=== PATIENT | male | born 1965 | race Caucasian/White ===

== ENCOUNTER → 2020-12-27 14:32 | Outpatient (CLI) | payer BC, SELFPAY ==
--- NOTE | ~2020-12-27 | XR_ITS ---
EXAMINATION: XR chest 2V 12/27/2020 14:48 INDICATION: Fatigue. Exercise intolerance. PROCEDURE: 2 view chest COMPARISON: No prior studies for comparison. FINDINGS: The lungs are clear. The cardiomediastinal silhouette is within normal limits. There are no pleural effusions. There is no pneumothorax suspected. IMPRESSION: 1: NO ACUTE CARDIOPULMONARY DISEASE. Reviewed, dictated and finalized at location A.
--- NOTE | ~2020-12-27 | XR_ITS ---
XR hip LT min 2V 12/27/2020 14:48 INDICATION: Left hip pain PROCEDURE: 2 views left hip COMPARISON: No prior studies for comparison. FINDINGS: Fracture, dislocation or subluxation is not identified. The soft tissues appear within norm al limits. No foreign bodies are identified. IMPRESSION: 1: NO ACUTE BONE OR JOINT ABNORMALITY IDENTIFIED. Reviewed, dictated and finalized at location A.
== END ==
PROVIDERS: PCP Family Medicine Adolescent Medicine; Visit Provider Physician Assistant
DX: M25.552 Pain in left hip (principal)
CPT/HCPCS: 71046; 73502

== ENCOUNTER → 2025-03-11 11:08 | Outpatient (CLI) | payer OTHER, SELFPAY ==
--- NOTE | ~2025-03-11 | XR_ITS ---
EXAMINATION: XR chest 2V, 03/11/2025 11:11 PODIATRY PROFESSOR HISTORY: R06.00 - Dyspnea, unspecified pain 4x days nonsmoker COMPARISON: No comparisons available. Technique: 2 views obtained. Findings: The lungs are clear, no effusion. No pneumothorax. Heart is normal size. Mediastinal and hilar contours are within normal limits. Bony thorax no acute abnormality. Impression: No acute cardiopulmonary abnormality. Reviewed, dictated and finalized at location P. ATRY PROFESSOR Impression: No acute cardiopulmonary abnormality.
== END ==
LOC: EXPCRAD 11:09
PROVIDERS: PCP Nurse Practitioner Family; Visit Provider Nurse Practitioner Family
DX: R06.00 Dyspnea, unspecified (principal)
CPT/HCPCS: 71046

== ENCOUNTER 2025-03-29 07:37 | Outpatient (CLI) | payer OTHER, SELFPAY ==
--- NOTE | ~2025-03-29 | NM_ITS ---
EXAMINATION: NM stress w perf spect multi DATE: 03/29/2025 10:54 INDICATION: Dyspnea TECHNIQUE: Rest images were obtained following intravenous administration of 10 mCi Tc99m tetrofosmin (Myoview). The patient performed an exercise activity. At peak exercise, 30 mCi Tc99m tetrofosmin (Myoview) was administered intravenously, and stress images were obtained. Data was reconstructed into short axis and horizontal and vertical long axis SPECT images. Gated SPECT images were also obtained. COMPARISON: None. FINDINGS: There is normal left ventricular perfusion without definite evidence of reversible or fixed perfusion abnormality on post stress imaging to suggest ischemia or infarction. There is normal left ventricular chamber size, wall motion and ejection fraction. Left ventricular ejection fraction measures 61%. IMPRESSION: 1. Normal myocardial perfusion during stress. 2. Left ventricular ejection fraction measuring 61%. Reviewed, dictated and finalized at location A. [employer]ON DESIGN PROFESSOR
--- OUTSIDE RECORDS SUMMARY | 2025-03-29 07:41 | XMS_ITS | Encounter Summary ---
Author Organization [facility] Address [address] [place] [address] Care Team Providers Care Asset Management Lead Name Role Phone Toy Cobian MD Primary Care Provider +1- [phone] Encounter Details Date Type Department Care Team (Late st Contact Info) Description 10/06/2020 MyChart Message Enc [facility] Multispecialty Care - [facility] [address] [place] [address] Damion Marcano MD [address] [address] [place] [address] RE: Question Social History Tobacco Use Types Packs/Day Years Used Date Smoking Tobacco: Never Smokeless Tobacco: Never Alcohol Use Standard Drinks/Week Comments Yes 0 (1 standard drink = 0.6 oz pur e alcohol) OCCASIONAL 2-3 if any per week PHQ-2 Answer Date Recorded PHQ-2 Score - If the patient scores above 3, please move on to questions 3-9 0 08/02/2020 Sex and Gender Information Value Date Recorded Sex Assigned at Male 05/12/2024 9:40 AM FINAL BLOCK PRESS OPERATOR Legal Sex Male 8:20 PM CDT Gender Identity Not on file Sexual Orientation Not on file COVID-19 Exposure Response Date Recorded In the last month, have you been in contact with someone who was confirmed or suspected to have Coronavirus / COVID-19? No / Unsure 10/06/2020 8:05 AM CDT documented as of this encounter Plan of Treatment Not on file documented as of this encounter Visit Diagnoses Not on filedocumented in this encounter Care Teams Asset Management Lead Relationship Specialty Start Date End Date Toy Cobian MD [address] [address] PCP - General FAMILY PRACTICE 02/27/18 documented as of this encounter
--- OUTSIDE RECORDS SUMMARY | 2025-03-29 07:41 | XMS_ITS | Encounter Summary ---
Author Organization [facility] Address [address] [place] [address] Care Team Providers Care Flake Miller Wheat And Oats Name Role Phone Toy Cobian MD Primary Care Provider +1- [phone] Encounter Details Date Type Department Care Team (Late st Contact Info) Description 08/10/2020 Prep for Procedure [facility] Pre-Admission Testing [address] [place], [place] [id number] Damion Marcano MD [address] [place] [id number] [place] [address] Social History Tobacco Use Types Packs/Day Years [...] Sex Assigned at Male 05/12/2024 9:40 AM IS TECHNICIAN Legal Sex Male 8:20 PM CDT Gender Identity Not on file Sexual Orientation Not on file COVID-19 Exposure Response Date Recorded In the last month, have you been in contact with someone who was confirmed or suspected to have Coronavirus / COVID-19? No / Unsure 08/10/2020 11:11 AM CDT documented as of this encounter Plan of Treatment Not on file documented as of this encounter Results * PRE-SURGICAL/PRE-PROCEDURE CORONAVIRUS (COVID 19) (08/07/2020 10:17 AM CDT) CORONAVIRUS SARS COV 2 PCR (RESP) NOT DETECTED NOT DETECTED 08/08/2020 5:05 PM CDT [facility] Comment: A Not Detected (negative) test result for this test means that SARS- CoV-2 RNA was not present in the specimen above the limit of detection. A negative result does not rule out the possibility of COVID-19 and should not be used as the sole basis for treatment or patient management decisions. If COVID-19 is still suspected, based on exposure history together with other clinical findings, re-testing should be considered in consultation with public health authorities. Laboratory test results should always be considered in the context of clinical observations and epidemiological data in making a final diagnosis and patient management decisions. Please review the Fact Sheets and FDA authorized labeling available for health care providers and patients using the following websites: https://www.[employer]/home/Covid-19/HCP/NAAT/fact-sheet2 https://www.[employer]/home/Covid-19/Patients/NAAT/ fact-sheet2 This test has been authorized by the FDA under an Emergency Use Authorization (EUA) for use by authorized laboratories. Due to the current public health emergency, [facility] is receiving a high volume of samples from a wide variety of swabs and media for COVID-19 testing. In order to serve patients during this public health crisis, samples from appropriate clinical sources are being tested. Negative test results derived from specimens received in non-commercially manufactured viral collection and transport media, or in media and sample collection kits not yet authorized by FDA for COVID-19 testing should be cautiously evaluated and the patient potentially subjected to extra precautions such as additional clinical monitoring, including collection of an additional specimen. Methodology: Nucleic Acid Amplification Test (NAAT) includes RT-PCR or TMA Additional information about COVID-19 can be found at the [facility] website: www.[employer]/Covid19. Test performed at [facility] [address] [place] [address] Director: ANA LAURA BOWEN DO,MPH FIRST TEST NO 08/07/2020 11:05 AM CDT [facility] EMPLOYED IN HEALTHCARE NO 08/07/2020 11:05 AM CDT [facility] SYMPTOMATIC DEFINED BY CDC NO 08/07/2020 11:05 AM CDT [facility] DATE OF SYMPTOM ONSET NO 08/07/2020 12:36 PM CDT [facility] HOSPITALIZATION STATUS NO 08/07/2020 11:05 AM CDT [facility] PATIENT IN ICU NO 08/07/2020 11:05 AM CDT [facility] RESIDENT OF [facility] NO 08/07/2020 11:05 AM CDT [facility] NOT 08/07/2020 12:36 PM CDT [facility] PATIENT'S RACE WHITE OR 08/07/2020 11:05 AM CDT [facility] ETHNICITY NONHISPANIC 08/07/2020 11:05 AM CDT [facility] SOURCE (QST) NASOPHARYNGEAL SWAB 08/07/2020 11:05 AM CDT [facility] NASOPHARYNGEAL SWAB / Unknown 08/07/2020 10:17 AM CDT us Damion Marcano MD MICROBIOLOGY - [facility]AL [facility] Final Result [facility] [address] [place] [address], [place] [phone] [facility] [address] [place] [address], documented in this encounter Visit Diagnoses Diagnosis Preoperative testing- Primary Preoperative examination, unspecified documented in this encounter Care Teams Flake Miller Wheat And Oats Relationship Specialty Start Date End Date Toy Cobian MD [address] [place] [address] PCP - General FAMILY PRACTICE 02/27/18 documented as of this encounter
--- OUTSIDE RECORDS SUMMARY | 2025-03-29 07:41 | XMS_ITS | Clinical Summary ---
Author Organization [facility] Address [address] [place] [address] Care Team Providers Care Brick Extruder Operator Name Role Phone Unavailable Primary Care Provider Unavailabl e Source Comments [facility],non-owned Affiliates and Associated Physician Practices is amultiple site organization consisting of ambulatory clinics and hospital sitesin [place], [place], [place] and [place]. This disclosure is being madepursuant to the Care Everywhere program and may not contain all information available regarding this patient. Last updated 17.[facility] Social History Tobacco Use Types Packs/Day Years Used Date Smoking Tobacco: Never Assessed Sex and Gender Information Value Date Recorded Sex Assigned at Not on file Legal Sex Male 3:20 PM CDT Gender Identity Not on file Sexual Orientation Not on file Plan of Treatment Health Maintenance Due Date Last Done Comments COLOGUARD (AGES 45-75) - COL ON CA SCREENING 1967 COLON MONITORING 1967 COLONOSCOPY - COLON CA SCREENING 1967 CT COLONOGRAPHY - COLON CA SCREENING 1967 Colorectal Cancer Screening 1967 FIT - COLON CA SCREENING 1967 FLEX SIG - COLON CA SCREENING 1967 LIPID TESTING 1967 HIV SCREENING 11/26/1982 HEPATITIS C SCREENING 11/22/1985 DTAP/TDAP/TD VACCINES (1 - Tdap) 11/26/1986 HEPATITIS B VACCINE (1 of 3 - 19+ 3-dose series) 11/26/1986 PNEUMOCOCCAL VACCINE 50+ (1 of 1 - PCV) 11/26/2017 ZOSTER VACCINE (1 of 2) 11/26/2017 DEPRESSION SCREENING 04/08/2024 COVID-19 VACCINE (1 - 2024-2 6 season) 2024 INFLUENZA VACCINE (#1) 2024 HIB VACCINE Aged Out No longer eligi ble based on patient's age to complete this topic HPV VACCINE Aged Out No longer eligi ble based on patient's age to complete this topic MENINGOCOCCAL (Group B) VACC INE SHARED DECISION-MAKING Aged Out No longer eligibl e based on patient's age to complete this topic MENINGOCOCCAL GROUPS A/C/Y/W VACCINE Aged Out No longer eligible b ased on patient's age to complete this topic Insurance [facility]
--- OUTSIDE RECORDS SUMMARY | 2025-03-29 07:41 | XMS_ITS | Clinical Summary ---
Author Organization [facility] Address [facility] [place] [address] Care Team Providers Care Jumbo Operator Name Role Phone Toy Cobian MD Primary Care Provider +1- [phone] Allergies No known active allergies Medications omeprazole 20 MG capsule Take 1 capsule (20 mg total) by mouth daily. 07/23/2020 Active testosterone cypionate 200 MG/ML injection INJECT .75 MG EVERY WEEK 04/05/2020 Active lisinopril 20 MG tablet Take 1 tablet (20 mg total) by mouth daily. 07/13/2020 Active buPROPion XL 300 MG 24 hr tablet Take 1 tablet (300 mg total) by mouth daily. 06/27/2020 Active amphetamine-dex troamphetamine 15 MG tablet Take 1 tablet (15 mg total) by mouth daily. 07/07/2020 Active vitamin D3, cholecalciferol , 10 MCG (400 UNIT) tablet Take 400 Units by mouth daily. Active Active Problems Problem Noted Date Diagnosed Date S/P tendon repair 08/09/2020 Rupture of left distal biceps tendon, initial en counter 08/02/2020 Immunizations Immunization Administration Dates Next Due Influenza (Generic) 03/11/2020 Family History Medical History Relation Comments Cancer Brother esophageal cance r meningitis Brother No Known Problems Daughter COPD Father Cancer Father leukemia- adelaida t skin cancer Father No Known Problems Maternal Aunt No Known Problems Maternal Grandfather Asthma Maternal Grandmother No Known Problems Maternal Uncle COPD Mother Heart Mother Hypertension Mother No Known Problems Paternal Aunt No Known Problems Paternal Grandfather No Known Problems Paternal Grandmother No Known Problems Paternal Uncle gi issues, just had surgery for Sister No Known Problems Son 1 No Known Problems Son 2 Relation Status Comments Brother Alive Daughter Alive Father Alive Maternal Aunt Maternal Grandfather Maternal Grandmother Maternal Uncle Mother Alive Paternal Aunt Paternal Grandfather Paternal Grandmother Paternal Uncle Sister Alive Son 1 Alive Son 2 Alive Social History Tobacco Use Types Packs/Day Years Used Date Smoking Tobacco: Never Passive Smoke Exposure: Past Smokeless Tobacco: Never Tobacco Cessation:Counseling Given: Not Answered Comments:Lived in house of all smokers for 1st 26 years. Alcohol Use Standard Drinks/Week Comments Yes 8.3 (1 standard drin k = 0.6 oz pure alcohol) OCCASIONAL 2-3 if any per week PHQ-2 Answer Date Recorded PHQ-2 Score - If the patient scores above 3, please move on to questions 3-9 0 11/06/2021 Sex and Gender Information Value Date Recorded Sex Assigned at Male 05/12/2024 9:40 AM SHAMPOO TECHNICIAN Legal Sex Male 8:20 PM CDT Gender Identity Not on file Sexual Orientation Not on file Last Filed Vital Signs Vital Sign Reading Time Taken Comments Blood Pressure 140/101 05/12/2024 5:16 PM SHAMPOO TECHNICIAN Pulse 82 05/12/2024 5:16 PM SHAMPOO TECHNICIAN Temperature 36.6 C (97.8 F) 05/12/2024 11:37 AM SHAMPOO TECHNICIAN Respiratory Rate 16 05/12/2024 5:16 PM SHAMPOO TECHNICIAN Oxygen Saturation 98% 05/12/2024 5:16 PM SHAMPOO TECHNICIAN Inhaled Oxygen Concentration - - Weight 95.3 kg (210 lb) 05/12/2024 11:37 AM SHAMPOO TECHNICIAN Height 185.4 cm (6' 1) 05/12/2024 11:37 AM SHAMPOO TECHNICIAN Body Mass Index 27.71 05/12/2024 11:37 AM SHAMPOO TECHNICIAN Plan of Treatment Health Maintenance Due Date Last Done Comments Colorectal Cancer Screening Colonoscopy (10 Years) 1967 Annual Physical 11/26/1970 Hepatitis C 11/26/1985 DTaP, Tdap and Td Vaccines ( 1 - Tdap) 11/26/1986 Hepatitis B Vaccines (1 of 3 - 19+ 3-dose series) 11/26/1986 Pneumococcal Vaccine: 50+ Years (1 of 1 - PCV) 11/26/2017 Zoster Vaccines (1 of 2) 11/26/2017 PHQ-2 (Physician [place]) 04/08/2024 COVID-19 Vaccine (2024-2 6 season) 2024 07/04/2020, 06/11/2020 Influenza Adult (#1) 2025 03/11/2020 Hepatitis A Vaccines Aged Out No long er eligible based on patient's age to complete this topic Meningococcal B Vaccine Aged Out No l onger eligible based on patient's age to complete this topic Meningococcal Vaccine Aged Out No ana alethea eligible based on patient's age to complete this topic RSV Immunizations Under 20 Months Aged Out No longer eligible b ased on patient's age to complete this topic Medical Devices Implanted Type Area Traveling Accountant Device Identifier Shelf Expiration Date Model / Serial / Lot Implant [employer]posite Distal Biceps Repair - [id number] Implanted:Qty: 1 on 08/10/2020 by Damion Marcano MD at [facility] Left: Arm [employer] [id number] 03/07/2022 [id number] / / [id number] Insurance [facility] Care Teams Jumbo Operator Relationship Specialty Start Date End Date Toy Cobian MD [address] [address] PCP - General FAMILY PRACTICE 02/27/18
--- OUTSIDE RECORDS SUMMARY | 2025-03-29 07:41 | XMS_ITS | Encounter Summary ---
Author Organization [facility] Address [address] [place] [address] Care Team Providers Care Psychologist Counseling Name Role Phone Unavailable Primary Care Provider Unavailabl e Encounter Details Date Type Department Care Team (Late st Contact Info) Description 08/27/2022 Lab Requisition [facility] - DermPath Lab [address] [facility] [address] [facility] [address] [facility] [place] [address] Judi Burton MD [address] [facility] [address] [place] [address] Social History Tobacco Use Types Packs/Day Years Used Date Smoking Tobacco: Never Assessed Sex and Gender Information Value Date Recorded Sex Assigned at Not on file Legal Sex Male 3:20 PM CDT Gender Identity Not on file Sexual Orientation Not on file documented as of this encounter Plan of Treatment Not on file documented as of this encounter Procedures Procedure Name Priority Date/Time Associated Diagnosis Comments DERMATOPATHOLOGY Routine 08/27/2022 3:06 PM CDT documented in this encounter Results * DERMATOPATHOLOGY (08/27/2022 3:06 PM CDT) Case Report Dermatopathology Report Case: [id number] Authorizing Provider: Judi Burton MD Collected: 08/27/2022 03:06 PM Ordering Location: [facility] DermPath Lab Received: 08/28/2022 03:58 PM Pathologist: Lamberto Valencia MD Specimen: Skin, right back 3 5:42 PM CDT DERMATOPATHOLOGY LABORATORY Final Diagnosis Specimen A. SKIN, right back: ACROCHORDON (SOFT FIBROMA, SKIN TAG) (L91.8) 3 5:42 PM CDT DERMATOPATHOLOGY LABORATORY at 1742 CDT Clinical History Acrochordon vs. Nevus vs. BCC 3 5:42 PM CDT DERMATOPATHOLOGY LABORATORY Gross Description Specimen A: Received is one formalin filled container labeled with the patient's name and designated right back. The specimen consists of a shave biopsy measuring [id number] and it is bisected. Jar 0. 3 5:42 PM CDT DERMATOPATHOLOGY LABORATORY Microscopic Description Specimen A. SKIN, right back: There is a gently folded epidermis surrounding a connective tissue core in which fat and collagen are intermingled. 3 5:42 PM CDT DERMATOPATHOLOGY LABORATORY Disclaimer An external and internal positive and negative controls are appropriate for the histochemical, immunohistochemical and immunofluorescence stain(s) in this case (if any), except where stated explicitly. The performance characteristics of the stain(s) cited in this report were developed and its performance characteristic determined by the Dermatopathology Laboratory at [facility], directed by Dr. Terrance Valencia. These tests need not be, and therefore are not, approved by the [place] Food and Drug Administration. The tests are used for clinical purposes. Billing Codes Specimen Charges Stain Charges 13947 1 3 5:42 PM CDT DERMATOPATHOLOGY LABORATORY Embedded Images 3 5:42 PM CDT DERMATOPATHOLOGY LABORATORY Pathology/Cytolo gy TISSUE SPECIMEN FROM SKIN / Unknown 08/27/2022 3:06 PM CDT 08/28/2022 3:58 PM CDT us Judi Burton MD LAB - PATHOLOGY/CYTOLOGY ORD ERABLES Final Result DERMATOPATHOLOGY LABORATORY [facility] - Department of Dermatology [address] [place] [address], [facility] [phone] documented in this encounter Visit Diagnoses Not on filedocumented in this encounter
--- OUTSIDE RECORDS SUMMARY | 2025-03-29 07:41 | XMS_ITS | Encounter Summary ---
Author Organization [facility] Address [address] [place] [address] Care Team Providers Care Privacy Analyst Name Role Phone Toy Cobian MD Primary Care Provider +1- [phone] Encounter Details Date Type Department Care Team (Latest Contact Info) Description 08/23/2020 nothingGrindert Message Enc [facility] Multispecialty Care - [facility] [address], [address] [place] [address] Damion Marcano MD [address] [address] [place] [address] RE: Follow Up/Update Social History Tobacco Use Types Packs/Day Years [...] Sex Assigned at Male 05/12/2024 9:40 AM GAS APPLIANCE SERVICER Legal Sex Male 8:20 PM CDT Gender Identity Not on file Sexual Orientation Not on file COVID-19 Exposure Response Date Recorded In the last month, have you been in contact with someone who was confirmed or suspected to have Coronavirus / COVID-19? No / Unsure 08/18/2020 3:11 PM CDT documented as of this encounter Plan of Treatment Not on file documented as of this encounter Visit Diagnoses Not on filedocumented in this encounter Care Teams Privacy Analyst Relationship Specialty Start Date End Date Toy Cobian MD [address] [address] PCP - General FAMILY PRACTICE 02/27/18 documented as of this encounter
--- OUTSIDE RECORDS SUMMARY | 2025-03-29 07:41 | XMS_ITS | Encounter Summary ---
Author Organization [facility] Address [address] [place] [address] Care Team Providers Care Director Of Medicare Name Role Phone Toy Cobian MD Primary Care Provider +1- [phone] Encounter Details Date Type Department Care Team (Late st Contact Info) Description 12/29/2020 Discharge [facility] Outpatient Therapy [facility] [address] [place] [address] Kaz Valencia, PT [place], [place] [id number] Social History Tobacco Use Types Packs/Day Years Used Date Smoking Tobacco: Never Smokeless Tobacco: Never Alcohol Use Standard Drinks/Week Comments Yes 0 (1 standard drink = 0.6 oz pur e alcohol) OCCASIONAL 2-3 if any per week PHQ-2 Answer Date Recorded PHQ-2 Score - If the patient scores above 3, please move on to questions 3-9 0 12/27/2020 Sex and Gender Information Value Date Recorded Sex Assigned at Male 05/12/2024 9:40 AM WELL PULLER HEAD Legal Sex Male 8:20 PM CDT Gender Identity Not on file Sexual Orientation Not on file COVID-19 Exposure Response Date Recorded In the last month, have you been in contact with someone who was confirmed or suspected to have Coronavirus / COVID-19? No / Unsure 12/27/2020 10:17 AM CDT documented as of this encounter Plan of Treatment Not on file documented as of this encounter Visit Diagnoses Not on filedocumented in this encounter Additional Health Concerns Assessment Noted Time PHQ-9 Depression Total Score: 0 12/28/19 11:18 AM CDT documented as of this encounter Care Teams Director Of Medicare Relationship Specialty Start Date End Date Toy Cobian MD [address] [address] PCP - General FAMILY PRACTICE 02/27/18 documented as of this encounter
--- OUTSIDE RECORDS SUMMARY | 2025-03-29 07:41 | XMS_ITS | Encounter Summary ---
Author Organization [facility] Address [address] [place] [address] Care Team Providers Care Hide Spreader Name Role Phone Toy Cobian MD Primary Care Provider +1- [phone] Encounter Details Date Type Department Care Team (Latest Contact Info) Description 08/24/2020 Taxizut Message Enc [facility] Group Multispecialty Care - [facility] [address] [facility], [address] [place] [address] Damion Marcano MD [address] [place] [address] [place] [address] RE: Follow Up/Update Social History [...] Sex Assigned at Male 05/12/2024 9:40 AM EDUCATIONAL PSYCHOLOGIST Legal Sex Male 8:20 PM CDT Gender [...] on filedocumented in this encounter Care Teams Hide Spreader Relationship Specialty Start Date End Date Toy Cobian MD [address] [address] PCP - General FAMILY PRACTICE 02/27/18 documented as of this encounter
--- NOTE | 2025-03-29 08:38 | EST_ITS ---
Patient Info Name: Adebayo Albright Age: 59 years : 1965 Gender: Male Ht: 73 in Wt: 210 lbs BSA: 2.23 m2 HR: 68 bpm BP: 145 / 94 mmHg Exam Date: 03/29/2025 8:38 AM Patient Status: O Admit Date: 03/29/2025 Exam Type: CA stress test treadmill w NM A nuclear stress test was performed. Staff Referring Physician: Meri Knight Attending Provider: Meri Knight Exercise Technologist: Idania Yeh Exercise Physician: Jhon Bahena DO Summary 1. 1. Negative Nick exercise stress test for ischemic ST changes by ECG criteria. 2. 2. Good functional capacity, achieving 10 METs of workload. 3. 3. Appropriate HR response to exercise. 4. 4. Appropriate HR recovery at 1 minute post exercise. 5. 5. Baseline hypertension. 6. 6. Nuclear scan to follow and will be reported separately. Please correlate with it. 7. 7. Patient informed of the above results. Protocol: Nick Stress ECG Details Stage: REST Duration (min): 0 min : 53 sec Speed (mph): 0.0 Grade (%): 0 HR (bpm): 66 SBP (mmHg): 145 DBP (mmHg): 94 METS: --- Stage: REST Duration (min): 4 min : 14 sec Speed (mph): 0.0 Grade (%): 0 HR (bpm): 77 SBP (mmHg): 145 DBP (mmHg): 94 METS: --- Stage: STAGE 1 Duration (min): 1 min : 0 sec Speed (mph): 1.7 Grade (%): 10 HR (bpm): 101 SBP (mmHg): 145 DBP (mmHg): 94 METS: --- Stage: STAGE 1 Duration (min): 2 min : 0 sec Speed (mph): 1.7 Grade (%): 10 HR (bpm): 104 SBP (mmHg): 145 DBP (mmHg): 94 METS: --- Stage: STAGE 1 Duration (min): 3 min : 0 sec Speed (mph): 1.7 Grade (%): 10 HR (bpm): 103 SBP (mmHg): 170 DBP (mmHg): 80 METS: --- Stage: STAGE 2 Duration (min): 1 min : 0 sec Speed (mph): 2.5 Grade (%): 12 HR (bpm): 115 SBP (mmHg): 170 DBP (mmHg): 80 METS: --- Stage: STAGE 2 Duration (min): 2 min : 0 sec Speed (mph): 2.5 Grade (%): 12 HR (bpm): 120 SBP (mmHg): 170 DBP (mmHg): 80 METS: --- Stage: STAGE 2 Duration (min): 3 min : 0 sec Speed (mph): 2.5 Grade (%): 12 HR (bpm): 124 SBP (mmHg): 170 DBP (mmHg): 80 METS: --- Stage: STAGE 3 Duration (min): 1 min : 0 sec Speed (mph): 3.4 Grade (%): 14 HR (bpm): 136 SBP (mmHg): 171 DBP (mmHg): 86 METS: --- Stage: STAGE 3 Duration (min): 2 min : 0 sec Speed (mph): 3.4 Grade (%): 14 HR (bpm): 139 SBP (mmHg): 171 DBP (mmHg): 86 METS: --- Stage: STAGE 3 Duration (min): 2 min : 36 sec Speed (mph): 3.4 Grade (%): 14 HR (bpm): 146 SBP (mmHg): 171 DBP (mmHg): 86 METS: --- Stage: RECOVERY Duration (min): 0 min : 23 sec Speed (mph): 0.0 Grade (%): 0 HR (bpm): 144 SBP (mmHg): 178 DBP (mmHg): 103 METS: --- Stage: RECOVERY Duration (min): 1 min : 23 sec Speed (mph): 0.0 Grade (%): 0 HR (bpm): 125 SBP (mmHg): 178 DBP (mmHg): 103 METS: --- Stage: RECOVERY Duration (min): 2 min : 23 sec Speed (mph): 0.0 Grade (%): 0 HR (bpm): 115 SBP (mmHg): 178 DBP (mmHg): 103 METS: --- Stage: RECOVERY Duration (min): 3 min : 23 sec Speed (mph): 0.0 Grade (%): 0 HR (bpm): 110 SBP (mmHg): 176 DBP (mmHg): 114 METS: --- Stage: RECOVERY Duration (min): 4 min : 23 sec Speed (mph): 0.0 Grade (%): 0 HR (bpm): 101 SBP (mmHg): 176 DBP (mmHg): 114 METS: --- Stage: RECOVERY Duration (min): 5 min : 23 sec Speed (mph): 0.0 Grade (%): 0 HR (bpm): 94 SBP (mmHg): 162 DBP (mmHg): 112 METS: --- Stage: RECOVERY Duration (min): 5 min : 39 sec Speed (mph): 0.0 Grade (%): 0 HR (bpm): 92 SBP (mmHg): 162 DBP (mmHg): 112 METS: --- Rest HR: 77 bpm Peak HR: 147 bpm Rest Sys BP: 145 mmHg Peak Sys BP: 178 mmHg Max Pred HR: 163 bpm % Max Pred HR: 90 % Target HR: 139 bpm Max RPP: 26,166 bpm*mmHg Flores Score: 1 Termination Reason: Reached target heart rate or workload Cardiac Symptoms: Shortness of breath Max ST Seg Deviation: 1.50 mm Total Time: 8 min : 36 sec Rest Adam BP: 94 mmHg Peak Adam BP: 103 mmHg Angina Score: None Total METS: 10.3 Resting ECG Sinus rhythm. Stress ECG No ST changes. Arrhythmias None. Report Signatures
== END 2025-03-29 07:38 | disposition home or self-care (01) ==
PROVIDERS: PCP Nurse Practitioner Family; Visit Provider Nurse Practitioner Family
DX: R06.09 Other forms of dyspnea (principal)
CPT/HCPCS: 78452; 93017; A9502